=== PATIENT | female | born 1975 | race Caucasian/White ===

== ENCOUNTER 2025-06-18 05:58 | Observation (INO) | payer OTHER ==
[2025-06-18] VITALS (11 sets, daily range): BP systolic 115–154; BP diastolic 64–95
[~2025-06-18] VITALS: Ht 172.7 cm; Wt 84.0 kg
[2025-06-18] MEDS ORDERED: LARIN 24 FE 11 EACH PO (06:25)
[2025-06-18] MEDS ORDERED: VENTOLIN HFA18 GM INH (06:26)
[2025-06-18] MEDS ORDERED: VALACYCLOVIR1000 MG PO (06:26)
[2025-06-18] MEDS ORDERED: METOPROLOL SUCC25 MG PO (06:26)
[2025-06-18 06:35] LABS: BASOPHILS 0.7 % (0.1-1.2); EOSINOPHILS 1.9 % (0.7-5.8); LYMPHOCYTES 15.9 % (19.3-51.7); MCH 29.1 PG (25.6-32.2); MCHC 33.0 g/dL (32.2-35.5); MCV 88.1 fL (79.4-94.8); MONOCYTES 4.2 % (4.7-12.5); NEUTROPHILS 76.9 % (34.0-71.1); RBC 4.61 M/uL (3.93-5.22)
[2025-06-18] MEDS ORDERED: FAMOTIDINE 20 MG/ 2 ML VIAL IV ONE ×2 (06:45→08:30)
[2025-06-18] MEDS ORDERED: KETOROLAC TROMETHAMINE 30 MG/ML VIAL IV ONE (06:45)
[2025-06-18] MEDS ORDERED: LACTATED RINGER'S 1,000 ML IV ONE (06:45)
[2025-06-18 06:50] LABS: ALT (SGPT) 31.0 U/L (14-59); AST (SGOT) 18.0 U/L (15-37); GLOMERULAR FILTRATION RATE,EST 65.0 mL/min (>60); PROTEIN, TOTAL 7.9 g/dL (6.4-8.2); UREA NITROGEN 14.0 mg/dL (7-18)
[2025-06-18] MEDS ORDERED: NITROGLYCERIN 0.4 MG SUBL SL PRN (07:00)
[2025-06-18] MEDS ORDERED: ASPIRIN 81 MG CHEW PO ONE (07:00)
[2025-06-18] MEDS ORDERED: SODIUM CHLORIDE 0.9% 1,000 ML IV SCH (08:30)
[2025-06-18] MEDS ORDERED: CEFAZOLIN SODIUM 1 GM in SODIUM CHLORIDE 0.9% 100 ML IV ONE (08:30)
[2025-06-18] MEDS ORDERED: MORPHINE SULFATE 4 MG/ML VIAL IV PRN ×2 (08:30→10:00)
--- NOTE | 2025-06-18 09:40 | NUR ---
RECIEVED REPORT FROM JOSÉ VARGAS. PT IS SITTING UP IN BED. IS AT BEDSIDE. LOULOU SMITH, GETTING VS.
[2025-06-18] MEDS ORDERED: KETOROLAC TROMETHAMINE 30 MG/ML VIAL IV PRN ×2 (10:00→14:00)
[2025-06-18] MEDS ORDERED: LACTATED RINGER'S 1,000 ML IV SCH ×3 (10:00→14:15)
[2025-06-18] MEDS ORDERED: PROCHLORPERAZINE EDISYLATE 10 MG/2 ML VIAL IV PRN ×3 (10:00→14:15)
--- NOTE | 2025-06-18 10:01 | NUR ---
DR. JACKSON CALLED TO NOTIFY OF PT'S PAIN AND VOMITING. MD GAVE ORDERS FOR MORPHINE, TOURADOL, AND COMPAZINE. NEW ORDER FOR MAINTINENCE FLUID RECIEVED WELL. MD WITH NO FURTHER ORDERS. PHONE CALL ENDED.
[2025-06-18 11:52] LABS: BLOOD/HGB, URINE TRACE-I (Negative); KETONE, URINE NEGATIVE (Negative); LEUK ESTERASE, URINE NEGATIVE (negative); NITRITE, URINE NEGATIVE (negative)
[2025-06-18 12:04] LABS: EPITHELIAL CELLS, URINE SQUAMOUS 2+ /lpf (0-1+)
[2025-06-18 12:05] LABS: BACTERIA, URINE 1+ /hpf (negative); CASTS, URINE NONE SEEN \\lpf; CRYSTALS, URINE NONE SEEN (0-1+); REFLEX CULTURE, URINE No (No)
--- NOTE | 2025-06-18 12:20 | NUR ---
CPOX SET UP AND UA COLLECTED AND SENT AT THIS TIME. PT LAYING IN BED WITH EYES OPEN. RR EVEN AND UNLABORED. REMAINS AT BEDSIDE. PT DENIES ANY NEEDS. LR WITH STRAIGHT TUBING AND EXTENSION TUBING SET UP FOR DS. CALL LIGHT WITHIN REACH.
--- NOTE | 2025-06-18 13:40 | NUR ---
Dr. Brown in with pt at this time. Pt c/o pain 9 out of 10 in her abdomen. Denies nausea at this time. Pt medicated with 4mg MS04, slow IVP. Call light nearby. Encouraged pt to use call light if she has any needs.
--- NOTE | 2025-06-18 13:40 | NUR ---
PT RESTING IN BED WITH EYES OPEN. FLUIDS INFUSING PER THE EMAR. REMAINS AT BEDSIDE. NO NEEDS AT THIS TIME. CALL LIGHT WITHIN REACH.
[2025-06-18] MEDS ORDERED: MORPHINE SULFATE 10 MG/ML VIAL IV PRN (14:00)
[2025-06-18] MEDS ORDERED: CEFAZOLIN SODIUM 2 GM in SODIUM CHLORIDE 0.9% 100 ML IV SCH ×2 (14:00→22:00)
--- NOTE | 2025-06-18 14:18 | NUR ---
PATIENT IN BED AT THIS TIME. [employer]PER[employer]OR [employer] CHARTED VITALS AND I&O'S. CALL LIGHT WITHIN REACH, NO FURTHER NEEDS AT THIS TIME.
[2025-06-18] MEDS ORDERED: SEVOFLURANE 250 ML BTL INH ONE (14:42)
--- NOTE | 2025-06-18 14:45 | NUR ---
PATIENT IS LYING IN BED WITH HOB ELEVATED. PATIENT WITH EYES OPEN AND RESPIRATIONS ARE EVEN AND UNLABORED. PATIENT STATES "PAIN IS STILL PRETTY BAD". PATIENT EDUCATED ON LOOKING WHEN THEY CAN GET ANOTHER DOSE OF PAIN MEDICATION. PATIENT EXPRESSED UNDERSTANDING. CPOX AT BEDSIDE. PATIENT STATED NO FURTHER NEEDS. CALL LIGHT AND PERSONAL BELONGINGS ARE WITHIN REACH.
[2025-06-18] MEDS ORDERED: fentaNYL citrate 50 MCG/ML SDV IV PRN (15:30)
[2025-06-18] MEDS ORDERED: NALOXONE HCL 0.4 MG SYR IV PRN (15:30)
[2025-06-18] MEDS ORDERED: HYDROmorphone HCL 1 MG/ML SYR IV PRN (15:30)
[2025-06-18] MEDS ORDERED: IBLOOD GLUCOSE TEST STRIP 1 EA TEST VI PRN (15:30)
[2025-06-18] MEDS ORDERED: CEFAZOLIN SODIUM 2 GM in SODIUM CHLORIDE 0.9% 100 ML IV ONE (15:30)
[2025-06-18] MEDS ORDERED: LIDOCAINE HCL 1% 30 ML SDV ONE (15:55)
[2025-06-18] MEDS ORDERED: SUGAMMADEX SODIUM 200 MG/2 ML ML ONE (15:55)
[2025-06-18] MEDS ORDERED: MIDAZOLAM HCL 2 MG/2 ML VIAL ONE (15:55)
[2025-06-18] MEDS ORDERED: DEXAMETHASONE SOD PHOS 4 MG/ML VIAL ONE (15:55)
[2025-06-18] MEDS ORDERED: ROCURONIUM BROMIDE 50 MG/5 ML SYR ONE (15:55)
[2025-06-18] MEDS ORDERED: LIDOCAINE HCL 2% 5 ML SDV ONE (15:55)
[2025-06-18] MEDS ORDERED: fentaNYL citrate 100 MCG/2 ML VIAL ONE (15:55)
--- NOTE | 2025-06-18 16:00 | NUR ---
PATIENT LEFT THE FLOOR AT THIS TIME FOR SURGERY.
[2025-06-18] MEDS ORDERED: SODIUM CHLORIDE 0.9% 20 ML IV ONE (16:48)
[2025-06-18] MEDS ORDERED: MORPHINE SULFATE 10 MG/ML VIAL ONE (16:48)
--- NOTE | 2025-06-18 17:11 | NUR ---
PT REMAINS OFF THE FLOOR AT THIS TIME
--- NOTE | 2025-06-18 17:36 | NUR ---
06/18/25 1736 RICHARD HOLLOWAY 1727 PT ARRIVED TO PACU FROM OR VIA STREACHER. PT NON RESPONSIVE TO TACTICLE OR VERBAL STIMULI. PT HAS ORAL AIRWAY IN PLACE. PT HAS 6L OF OXYGEN VIA FACE MASK. REPORT TAKEN FROM LAYLA Fischer CRNA. PT HAS IC IN L AC RUNNING LR CONTINUOUISLY. PT HAS X4 LAP SITES ON ABDOMEN WITH STERI STRIPS. PT BREATHING EQUAL AND UNLABORED.
--- NOTE | 2025-06-18 18:10 | NUR ---
RECIEVED REPORT FROM JOSÉ ASKEW. PT IS RESTING IN BED WITH EYES OPEN. IS AT BEDSIDE. VS TAKEN. PT RATES PAIN 4/10 AND STATES "IT IS MORE SORE THAN PAINFUL". LAPROSCOPIC SURGERY SITES X4 VISUIALIZED. SITES ARE COVERED WITH STERI-STRIPS. SCANT AMOUNT OF RED DRAINAGE NOTED TO STERI-STRIPS. PT REQUESTING SOMETHING TO DRINK AT THIS TIME. FRESH ICE WATER PROVIDED.
[2025-06-18] MEDS ORDERED: ACETAMINOPHEN 500 MG TAB PO PRN (18:15)
[2025-06-18] MEDS ORDERED: IBUPROFEN 600 MG TAB PO PRN (18:15)
[2025-06-18] MEDS ORDERED: OXYCODONE/APAP 7.5/325 TAB PO PRN (18:15)
--- NOTE | 2025-06-18 18:20 | NUR ---
PLACED CALL TO DR. JACKSON REGARDING "NPO" ORDER. DR JACKSON GAVE ORDERS TO ADVANCE PT TO REGULAR DIET AT THIS TIME. NO OTHER ORDERS GIVEN. PHONE CALL ENDED.
--- NOTE | 2025-06-18 19:55 | NUR ---
Pt awake, alert and oriented, on room air, post op CPOX at bedside. IVF infusing w/o problems. 4 lap sites abd with umbilical area with scant amount of ss drainage. no c/o pain at this time, SCDs in place, visiting with family
--- NOTE | 2025-06-18 20:35 | NUR ---
used call light, up to BRp 2 PA, tolerated well, voided, back to bed, c/o abd pain, medicated with 1 norco. Cooperative with assessment and vitals. On room air, clear lungs, regular hear rate and rhythm. abd soft, tender, linette, 4 lap sites with steristrips in place, umbilical area with old drainage. IVF infusing LAC, SCD's were on, off at this time, her requets, hob elevated. Oriented to room and procedures, all med teaching done. questions answered to her satisfaction.
[2025-06-18] MEDS ORDERED: FAMOTIDINE 20 MG/ 2 ML VIAL IV SCH ×2 (21:00)
--- NOTE | 2025-06-18 22:11 | NUR ---
PT USED CALL LIGHT, UP TO BRP, VOIDED QS CLEAR YELLOW URINE, DENIES PASSING GAS AT THIS TIME. AMBULATED TO HALLWAYS DOWN TO ICU AND BACK, TOLERATED WELL.
[2025-06-18] MEDS ORDERED: ALBUTEROL SULFATE 0.083% 3 ML VIAL INH PRN (22:45)
--- NOTE | 2025-06-19 00:04 | NUR ---
DROWSY, AWAKENS EASILY, ON ROOM AIR, CPOX AT BEDSIDE. IVF INFUSING W/O PROBLEMS, SCDS IN PLACE
--- NOTE | 2025-06-19 02:30 | NUR ---
resting, eyes closed, ivf infusing w/o problems, scds in place. no s/sx distress
[2025-06-19 02:31] VITALS: BP 109/59
[2025-06-19 02:32] VITALS: BP 109/59
--- NOTE | 2025-06-19 03:11 | NUR ---
used call light, c/o abd pain, medicated with Motrin and Percocet 1 tb. Up to BRP, voided QS, did own oral and facial care, back to bed, with minimum of help getting into bed, IVF infusing w/o problems, abd steristrips no changes, abd soft, tender, not passing gas. scds on.
[2025-06-19 05:54] VITALS: BP 105/57
[2025-06-19 05:56] VITALS: BP 105/57
--- NOTE | 2025-06-19 06:09 | NUR ---
no c/o pian, up to BRP, voided QS, IVF infusing w/o problems, cpox post op at bedside, coop with vitals. abd soft, tnder, ss in place. Walking hallways, tolerating well
--- NOTE | 2025-06-19 07:03 | NUR ---
RECIEVED REPORT FROM JOSÉ REYES. PT IS AWAKE IN BED, WATCHING TV. SCD'S ARE RUNNING. PT DENIES ANY NEEDS AT THIS TIME. CALL LIGHT AND PERSONAL BELONGINGS ARE WITHIN REACH.
--- NOTE | 2025-06-19 08:05 | NUR ---
ASSISTED PT TO BR. PT VOIDED 400 CC CLEAR YELLOW URINE. PT BACK IN BED WITH CPOX AND IV PLUGGED BACK IN. PT EDUCATED ON PRN PAIN REGIMEN. PT EXPRESSED UNDERSTANDING. PT DENIES ANY OTHER NEEDS AT THIS TIME. CALL LIGHT WITHIN REACH.
[2025-06-19] MEDS ORDERED: FAMOTIDINE 20 MG TAB PO SCH (09:00)
--- NOTE | 2025-06-19 09:15 | NUR ---
HOURLY ROUNDING PATIENT CALLED TO USE THE RESTROOM, NURSE IS AT BEDSIDE. BOARD HAS BEEN UPDATED AND CALL LIGHT HAS BEEN PLACED WITHIN REACH
[2025-06-19 09:19] VITALS: BP 138/81
[2025-06-19] MEDS ORDERED: ACETAMINOPHEN500 MG PO (09:22)
[2025-06-19] MEDS ORDERED: IBUPROFEN600 MG PO (09:22)
[2025-06-19] MEDS ORDERED: OXYCODON-ACETA1 EAC2 PO (09:22)
[2025-06-19 09:23] VITALS: BP 138/81
--- NOTE | 2025-06-19 09:28 | NUR ---
IN ROOM TO ASSIST PT TO BR. DR. JACKSON ROUNDED ON PT AT THIA TIME AND DISCUSSED PLANS TO PUT IN D/C ORDERS THIS AM. PT WAS AGREEABLE AND STATED THAT HER SISTER WOULD BE COMING AT AEOUND 1100.
--- NOTE | 2025-06-19 10:34 | NUR ---
PT SITTING UP IN BED VISITING WITH MOTHER IN LAW IN ROOM. DENIES NEEDS. CALL LIGHT WITHIN REACH.
--- NOTE | 2025-06-21 11:53 | HP ---
[facility] [address], [place] [address] Signed ADMISSION DATE: 06/18/2025 REASON FOR ADMISSION: Acute calculous cholecystitis. HISTORY OF PRESENT ILLNESS: This 50-year-old woman presented to the emergency room, evaluated thoroughly by Dr. Reginaldo Zimmemran with complaints of right upper abdominal pain that awakened her from sleep. She noted that the pain radiated from the mid portion of her abdomen bilaterally to the subcostal areas and was considered 10/10, constant, stabbing and associated with some nausea. Evaluation by Dr. Zimmerman include a gallbladder ultrasound showing gallstones and a nonmobile gallstone wedged in the infundibulum. Sonographic Parker's sign was positive. She had mild hepatomegaly. She is admitted for further evaluation and care. PAST MEDICAL HISTORY: Notable for hypertension and in the past. She does not use alcohol routinely and currently no drug use. MEDICINES: At admission include control pill, metoprolol, valacyclovir, and albuterol as needed. Her lab studies associated with evaluation included a troponin level which is considered normal, a white count of 8.9, hematocrit 40.6, platelets 263,000. Electrolytes are normal. Liver enzymes showed a bilirubin of 0.2, AST 18, ALT 31, alkaline phosphatase 67. SOCIAL HISTORY: She is , accompanied by her at this time. They live in [place]. REVIEW OF SYSTEMS: She denies any shortness of breath or chest pain. Has rather significant severe epigastric and right subcostal pain. Right now; her pain medicine is apparently wearing off. She does not currently have nausea that she did previously requiring additional medications. She denies any dysuria, hematuria, or hematemesis. PHYSICAL EXAMINATION: GENERAL: A tall white woman who looks to be uncomfortable. VITAL SIGNS: Height 5 feet 8 inches, weight 84 kg. BMI 28.2. HEENT: Trachea is midline. Mucous membranes are reasonably moist. CHEST: Clear. Electronically Signed By: FREDY JACKSON MD 06/21/25 1153 PATIENT NAME: CHRISTEN GOOD HISTORY AND PHYSICAL DATE OF : 75 REPORT #: [id number] PHYSICIAN: FREDY JACKSON MD PCP: [facility]SE REPORT IS CONFIDENTIAL AND NOT TO BE RELEASED WITHOUT AUTHORIZATION [facility] [address], [place] [address] Signed HEART: Regular without murmur. ABDOMEN: Shows mild tenderness in the epigastric and right subcostal area. There is no palpable mass. She has no ascites. EXTREMITIES: Show no clubbing, cyanosis, or edema. LABORATORY DATA: Lab studies are as noted previously. Her beta HCG is pending as it appears not to have been ordered in the emergency room. She has been perimenopausal for a number of years and is on a control pill. A beta HCG will be ordered. ASSESSMENT: The patient has significant acute calculous cholecystitis based on ultrasound, which showed a large stone wedged in the infundibulum of the gallbladder and multiple stones elsewhere. Discussed in detail using the white board with the patient and her the pathophysiology of biliary disease and recommendation of treatment to include cholecystectomy preferred by a laparoscopic approach. The risk of bleeding, infection, bile duct injury, need for open procedure and need for other indicated procedures was reviewed in detail. She and her understand and wished to proceed. In the meantime, we will obtain a beta HCG as well as continue fluid resuscitation, IV antibiotics and pain control and nausea control. MD ALESHA Vuong/SEBASTIENL /[id number] cc: MUNA Huffman Copies: [facility]I HOUSE ~ Electronically Signed By: FREDY JACKSON MD 06/21/25 1153 PATIENT NAME: CHRISTEN GOOD HISTORY AND PHYSICAL DATE OF : 75 REPORT #: [id number] PHYSICIAN: FREDY JACKSON MD PCP: [facility]I HOUSE REPORT IS CONFIDENTIAL AND NOT TO BE RELEASED WITHOUT AUTHORIZATION
--- NOTE | 2025-06-21 11:53 | OR ---
[facility] [address], [place] [address] Signed DATE OF OPERATION: 06/18/2025 SURGEON: Fredy Jackson MD PREOPERATIVE DIAGNOSIS: Acute calculous cholecystitis. POSTOPERATIVE DIAGNOSIS: Acute calculous cholecystitis. PROCEDURES: 1. Laparoscopic cholecystectomy with intraoperative cholangiogram. 2. Surgeon-directed fluoroscopy. ANESTHESIA: General endotracheal. Dolores Waldron CRNA and local with 10 mL of 0.25% Marcaine with epinephrine. INDICATION: This 50-year-old white woman presented to the emergency room with severe epigastric and band-like pain in the upper abdomen with elevated white count and clinical findings consistent with acute cholecystitis. Gallbladder ultrasound performed by the emergency room physician, Dr. Reginaldo Zimmerman, confirmed multiple gallstones and findings consistent with acute cholecystitis. The patient has been fluid resuscitated, given intravenous antibiotics and parental pain control, who is now to undergo cholecystectomy, preferably by a laparoscopic approach. The risk of bleeding, infection, bile duct injury, need for open procedure, and need for other indicated procedures were reviewed with her. She understands and wished to proceed. FINDINGS: Gallbladder was quite tense, distended, and inflamed, did require decompression. It was pink in color overall. It was very thickened. Once excised, the mucosa was a slick, pink-red mucosa without any sign of neoplasm. There were 11 large gallstones, all of them at least 2 cm in size. Cholangiogram was normal. DESCRIPTION OF PROCEDURE: The patient was brought to the operating room, given a general endotracheal anesthetic. Preoperative antibiotic Ancef had been given. Sequential compression device stockings were used. The abdomen was prepared with a chlorhexidine solution and draped sterilely after satisfactory general endotracheal anesthesia. After sterile draping, an Electronically Signed By: FREDY JACKSON MD 06/21/25 1153 PATIENT NAME: CHRISTEN GOOD OPERATIVE REPORT DATE OF : 75 REPORT #: [id number] PHYSICIAN: FREDY JACKSON MD PCP: [facility]SE REPORT IS CONFIDENTIAL AND NOT TO BE RELEASED WITHOUT AUTHORIZATION [facility] [address], [place] [address] Signed infraumbilical incision was made, and using an open Josselyn cannula technique, pneumoperitoneum was achieved to a level of 14 mmHg of carbon dioxide gas. Intra-abdominal inspection showed no sign of ascites or carcinomatosis. The gallbladder was obscured from view as the omentum covered it and portion of the liver. Three additional trocars were placed in usual configuration in the subxiphoid, right midclavicular, and right anterior axillary line. Gallbladder was identified and from the omentum, found to be quite tense and distended and certainly would not accommodate grafting by a grasping device. Using a trocar needle device, the gallbladder was decompressed of green bile. The puncture site was grasped, and the gallbladder was elevated cephalad. Using blunt electrocautery dissection, the triangle of Calot was dissected free, ultimately identifying the cystic duct itself. A clip was applied across the gallbladder-cystic duct junction, and a transverse choledochotomy was made in it. Retrograde milking of the duct showed no sign of stone or other problem. Using an Cook-type cholangiocatheter, intraoperative cholangiogram was undertaken showing free flow of contrast in biliary tree with prompt emptying into the duodenum. Unfortunately, there was not retrograde flow and therefore, morphine 4 mg was given, and cholangiogram repeated showing good opacification of the biliary tree proximally. Catheter was removed, and the cystic duct was triply clipped and divided, and the gallbladder dissected free in a retrograde fashion using electrocautery. Gallbladder once excised was placed in an Endobag and extracted through the infraumbilical port site. It was slightly challenging to remove the Endobag because the stones had gathered up so much, and they were relatively large actually. Once removed, the gallbladder was opened on the back table and found to have 11 large gallstones as well as a thick and shiny mucosal surface devoid of any trabeculations grossly. Inspection of the subhepatic space was undertaken showing no bile leak or bleeding. Trocars were removed individually under direct visualization. The right upper quadrant and right mid axillary trocars had a bit of oozing for which cautery was used with good clinical benefit. The scope was removed, and the Josselyn cannula was removed, and the infraumbilical fascial incision was reapproximated with interrupted 0-Vicryl suture. Irrigation of the other incision was undertaken and 10 mL of 0.25% Marcaine with epinephrine was injected locally. The skin was closed with interrupted 3-0 Vicryl, and Steri-Strips were applied. The patient tolerated the procedure well. BLOOD LOSS: Minimal. COMPLICATIONS: None. Electronically Signed By: FREDY JACKSON MD 06/21/25 1153 PATIENT NAME: CHRISTEN GOOD OPERATIVE REPORT DATE OF : 75 REPORT #: [id number] PHYSICIAN: FREDY JACKSON MD PCP: [facility] REPORT IS CONFIDENTIAL AND NOT TO BE RELEASED WITHOUT AUTHORIZATION [address] [address] Signed MD ALESHA Vuong/MODL /[id number] cc: MUNA Huffman Copies: [facility] ~ Electronically Signed By: FREDY JACKSON MD 06/21/25 1153 PATIENT NAME: CHRISTEN GOOD OPERATIVE REPORT DATE OF : 75 REPORT #: [id number] PHYSICIAN: FREDY JACKSON MD PCP: [facility] HOUSE REPORT IS CONFIDENTIAL AND NOT TO BE RELEASED WITHOUT AUTHORIZATION
--- NOTE | 2025-06-22 16:11 | PATH ---
[facility] [address] [place], [place] [address] Signed SPECIMEN(S): A GALLBLADDER AND STONES SPECIMEN SOURCE: A. GALLBLADDER AND STONES CLINICAL HISTORY: Cholecystitis FINAL PATHOLOGIC DIAGNOSIS: Gallbladder and stones per requisition: - Acute and chronic calculous cholecystitis. [facility] MICROSCOPIC EXAMINATION: Histologic sections of all submitted blocks are examined by light microscopy. These findings, together with the gross examination, support the pathologic diagnosis. GROSS DESCRIPTION: The specimen, labeled and designated "LatishaMilvia, gallbladder and stones per requisition," is received in formalin and consists of Specimen: Surgically disrupted gallbladder. Dimensions: 12.1 x 5.2 x 2.8 cm. Serosa: [place]-purple and smooth. Cystic Duct: Unobstructed, inked. Calculi: Present�brown and multifaceted. Mucosa: [place]-brown and velvety. Wall thickness: 0.5 to 0.7 cm. Lymph node: No pericystic lymph nodes are grossly identified. Additional: None. Nurse Charge Rn sections are submitted in (A1). AA (under the direct supervision of a pathologist) The Gross Description was prepared using a voice recognition system. The report was reviewed for accuracy; however, sound-alike word errors, addition and/or deletions may occur. If there is any question about this report, please contact Client Services. ADDITIONAL NOTES: Immunohistochemical and/or in situ hybridization studies if performed in this case included appropriate positive controls that reacted as expected. This test was developed and its performance PATIENT NAME: LATISHACHRISTEN PATHOLOGY DATE OF : 75 REPORT #: [id number] PHYSICIAN: SHADIA MEDINA PCP: [facility]SE REPORT IS CONFIDENTIAL AND NOT TO BE RELEASED WITHOUT AUTHORIZATION [facility] [address] [facility] [place] [address] Signed characteristics determined by [employer]. It has not been cleared or approved by the U.S. Food and Drug Administration. The FDA has determined that such clearance or approval is not necessary. This test is used for clinical purposes. It should not be regarded as investigational or for research. [facility] [facility] is certified under the Clinical Laboratory Improvement Amendments of 1988 (CLIA) as qualified to perform high complexity clinical laboratory testing. PERFORMING LABORATORY: Technical component was performed by [facility], [address] [place] [id number] (CLIA# [id number]). Professional interpretation was performed by [facility] [facility] - [address] [place] [address] (CLIA#: [id number]). Diagnostician: Bart Wilson MD Pathologist Electronically Signed 06/22/2025 Copies: ~ PATIENT NAME: CHRISTEN GOOD PATHOLOGY DATE OF : 75 REPORT #: [id number] PHYSICIAN: SHADIA PATHOLOGY PCP: NAGI HOUSE REPORT IS CONFIDENTIAL AND NOT TO BE RELEASED WITHOUT AUTHORIZATION
== END 2025-06-19 11:45 | disposition home or self-care (01) ==
LOC: ED 05:58 → MS 06:00
PROVIDERS: Internal Medicine; ADMIT Surgery; ATTEND Surgery
PROC: BF502Z0 Other Imaging of Bile Ducts using Fluorescing Agent, Intraoperative (ICD-10-PCS; 2025-06-18)
PROC: 0FT44ZZ Resection of Gallbladder, Percutaneous Endoscopic Approach (ICD-10-PCS; principal; 2025-06-18 16:00)
DX: K80.12 Calculus of gallbladder with acute and chronic cholecystitis without obstruction (principal); I10 Essential (primary) hypertension
CPT/HCPCS: 00790; 36415; 74300; 76705; 80053; 81001; 83690; 83735; 84484; 84703; 85025; 94762; 96361; 96365; 96374; 96375; 96376; 99285-25; A9270; G0378; J0688; J0690; J0780; J1100; J1885; J2003; J2250; J2270; J2405; J2704; J3010; J3490; J7121; Q9967